=== PATIENT | female | born 1995 | race African-American/Black ===

== ENCOUNTER 2018-05-11 17:35 | Emergency (ER) | payer OTHER ==
[2018-05-11 17:39] VITALS: BP 119/81; PULSE 108; RESP 18; TEMP 98.1
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
[2018-05-11] MEDS ORDERED: IBUPROFEN 600 MG TAB PO STA (18:15)
[2018-05-11] MEDS ORDERED: ACETAMINOPHEN TAB 325 MG TAB PO STA (18:16)
--- NOTE | 2018-05-11 18:20 | XR ---
EXAMINATION TYPE: XR Hip Complete RT DATE OF EXAM: 05/11/2018 COMPARISON: NONE HISTORY: Right hip pain TECHNIQUE: 2 views FINDINGS: There is intramedullary bailey in the femur. I see no fracture nor dislocation. Hip joint spac e is fairly normal. Sacroiliac joint is intact. IMPRESSION: Negative right hip exam.
== END 2018-05-11 18:54 | disposition home or self-care (01) ==
LOC: EC 17:35
DX: M25.551 Pain in right hip (principal); E11.9 Type 2 diabetes mellitus without complications; Z79.4 Long term (current) use of insulin
CPT/HCPCS: 73502; 99283

== ENCOUNTER 2020-03-06 12:00 | Emergency (ER) | payer OTHER ==
[2020-03-06 12:04] VITALS: RESP 18
--- NOTE | 2020-03-06 12:15 | ED ---
General Adult HPI - General Source: patient, RN notes reviewed Mode of arrival: ambulatory Limitations: no limitations <Cody Palacio - Last Filed: 03/06/20 12:43> <Nini Wong - Last Filed: 03/06/20 23:12> - General Chief complaint: ENT Stated complaint: sore throat, tired Time Seen by Provider: 03/06/20 12:05 - History of Present Illness Initial comments: 24-year-old female with a past medical history of diabetes mellitus presents to the emergency department for a chief complaint of sore throat. Patient states her throat has been "scratchy." This has been ongoing for 3 days. Does admit to mild runny nose. Denies cough. Denies ear pain. Patient denies any fevers. Denies shortness of breath or chest pain. Denies nausea vomiting diarrhea.Patient has no other complaints at this time including shortness of breath, chest pain, abdominal pain, nausea or vomiting, headache, or visual changes. (Cody Palacio) - Related Data Home Medications Medication Instructions Recorded Confirmed INSULIN LISPRO (HumaLOG) [humaLOG] 1 dose SQ DIRECTED 02/01/16 02/01/16 Insulin Glargine [Lantus] 40 units SQ HS 02/01/16 02/01/16 Previous Rx's Medication Instructions Recorded Oseltamivir [Tamiflu] 75 mg PO Q12HR #10 cap 02/01/16 Allergies Allergy/AdvReac Type Severity Reaction Status Date / Time No Known Allergies Allergy Verified 03/06/20 12:03 Review of Systems ROS Other: All systems not noted in ROS Statement are negative. <Cody Palacio - Last Filed: 03/06/20 12:43> ROS Other: All systems not noted in ROS Statement are negative. <Nini Wong - Last Filed: 03/06/20 23:12> ROS Statement: Those systems with pertinent positive or pertinent negative responses have been documented in the HPI. Past Medical History Past Medical History: Diabetes Mellitus History of Any Multi-Drug Resistant Organisms: None Reported Past Surgical History: Orthopedic Surgery Past Psychological History: No Psychological Hx Reported Smoking Status: Never smoker Past Alcohol Use History: None Reported Past Drug Use History: None Reported <Cody Palacio - Last Filed: 03/06/20 12:43> General Exam Limitations: no limitations General appearance: alert, in no apparent distress Head exam: Present: atraumatic, normocephalic, normal inspection Eye exam: Present: normal appearance, PERRL, EOMI. Absent: scleral icterus, con junctival injection, periorbital swelling ENT exam: Present: normal exam, normal oropharynx (Uvula midline, no tonsillar exudates bilaterally), mucous membranes moist, TM's normal bilaterally, normal external ear exam Neck exam: Present: normal inspection, full ROM. Absent: tenderness, meningismus, lymphadenopathy Respiratory exam: Present: normal lung sounds bilaterally. Absent: respiratory distress, wheezes, rales, rhonchi, stridor Cardiovascular Exam: Present: regular rate, normal rhythm, normal heart sounds. Absent: systolic murmur, diastolic murmur, rubs, gallop, clicks Neurological exam: Present: alert Psychiatric exam: Present: normal affect, normal mood <Cody Palacio - Last Filed: 03/06/20 12:43> Course Vital Signs 03/06/20 03/06/20 12:02 12:55 Temperature 98.0 F 98.1 F Pulse Rate 66 96 Respiratory 18 18 Rate Blood Pressure 119/87 143/80 O2 Sat by Pulse 99 96 Oximetry Medical Decision Making <Cody Palacio - Last Filed: 03/06/20 12:43> <Nini Wong - Last Filed: 03/06/20 23:12> - Medical Decision Making Vitals are stable. Physical exam is unremarkable. Uvula is midline without tonsillar exudates. Tonsillar pillars are symmetric, no evidence of peritonsillar abscess. Strep is negative. Covid 19 is pending. Patient will follow-up with her doctor in one to 2 days. She'll return for any worsening symptoms. (Cody Palacio) I was available for consultation in the emergency department. The history and physical exam were done by the midlevel provider. I was consulted for this patients care. I reviewed the case with the midlevel provider and based on their presentation of the patient, I agree with the assessment, medical decision making and plan of care as documented. Chart was dictated using [employer] dictation software. Attempts were made to correct any dictation errors however some typographical errors may persist. Patient was seen during a national state of emergency due to the Covid-19 pandemic. (Nini Wong) - Lab Data Lab Results 03/06/20 Range/Units 12:15 Group A Strep Rapid Negative (Negative) Disposition Is patient prescribed a controlled substance at d/c from ED?: No Time of Disposition: 12:15 <Cody Palacio - Last Filed: 03/06/20 12:43> <Nini Wong - Last Filed: 03/06/20 23:12> Clinical Impression: Pharyngitis Disposition: HOME SELF-CARE Condition: Good Instructions (If sedation given, give patient instructions): Pharyngitis (ED) Additional Instructions: Please take Tylenol for pain. Try warm liquids for comfort. Follow up with primary care in 1-2 days. Follow-up on Covid results. Return for any worsening symptoms. Referrals: Nonstaff,Physician [Primary Care Provider] - 1-2 days
[2020-03-06 12:56] VITALS: BP 143/80; PULSE 96; TEMP 98.1
== END 2020-03-06 12:50 | disposition home or self-care (01) ==
LOC: EC 12:00
DX: J02.9 Acute pharyngitis, unspecified (principal); E11.9 Type 2 diabetes mellitus without complications; Z79.4 Long term (current) use of insulin; Z20.828 Contact with and (suspected) exposure to other viral communicable diseases
CPT/HCPCS: 87081; 87430; 87635; 99283